=== PATIENT | male | born 1950 | race Caucasian/White ===

== ENCOUNTER 2019-03-13 10:41 | Inpatient (IN) ==
[2019-03-13] MEDS ORDERED: SODIUM CHLORIDE 0.9% 500 ML IV SCH (10:45)
[2019-03-13] MEDS ORDERED: fentaNYL citrate 100 MCG/2 ML VIAL IV STA (10:52)
[2019-03-13] MEDS ORDERED: Heparin IV Low Dose *NO* Bolus IV ONE (10:52)
--- NOTE | 2019-03-13 11:01 | XRay Report ---
XR chest 1V portable CLINICAL HISTORY: Atypical chest pain COMPARISON STUDY: No previous studies for comparison. FINDINGS: The heart is borderline enlarged. There is no failure. There is no focal pulmonary consolid ation. There are no pleural effusions. Apparent slight interstitial thickening, likely relates to ravi hnical factors given the patient's body habitus.[ IMPRESSION: No active disease in the chest. Electronically signed by: Noe Lanier M.D. 03/13/2019 10:59 AM
[2019-03-13 11:05] LABS: Basophils # (auto) 0.01 K/uL (0-0.2); Basophils % (auto) 0.1 %; Eosinophils # (auto) 0.07 K/uL (0-0.5); Eosinophils % (auto) 0.8 %; Hematocrit (blood only) 42.1 % (42-52); Hemoglobin 14.8 g/dL (14.0-18.0); Immature Granulocytes # (auto) 0.01 K/uL (0.00-0.02); Immature Granulocytes % (auto) 0.1 %; Lymphocytes # (auto) 3.18 K/uL (1.2-3.4); Lymphocytes % (auto) 34.2 %; Mean Corpuscular Hgb Conc 35.2 g/dL (32-36); Mean Platelet Volume 9.7 fL (7.4-10.4); Monocytes # (auto) 0.56 K/uL (0.11-0.59); Neutrophils # (auto) 5.47 K/uL (1.4-6.5); Neutrophils % (auto) 58.8 %; Platelet Count 338 K/uL (130-400); RDW Coefficient of Variation 13.3 % (11.5-14.5); RDW Standard Deviation 43.1 fL (36.4-46.3); Red Blood Count 4.68 M/uL (4.7-6.1)
[2019-03-13] MEDS ORDERED: TICAGRELOR 90 MG TAB PO ONE (11:08)
[2019-03-13] MEDS ORDERED: NITROGLYCERIN SL 0.4 MG/TAB TAB SL PRN (11:08)
[2019-03-13] MEDS ORDERED: HEPARIN (PORCINE) 1000 UNIT/ML 10 ML (CATH LAB USE ONLY) ONE (11:09)
[2019-03-13] MEDS ORDERED: NiCARDipine HCL INJ 2.5 MG/ML 10 ML AMP ONE (11:09)
[2019-03-13] MEDS ORDERED: MIDAZOLAM HCL 1 MG/ML 2ML VIAL ONE (11:09)
[2019-03-13] MEDS ORDERED: fentaNYL citrate 100 MCG/2 ML VIAL ONE (11:09)
[2019-03-13] MEDS ORDERED: NITROGLYCERIN/D5W 100MCG/ML 20ML SYR ONE (11:09)
[2019-03-13 11:10] LABS: iSTAT Creatinine 1.1 mg/dl (0.6-1.3); iSTAT Hemoglobin 14.3 g/dl (14.0-18.0); iSTAT Ionized Calcium 1.1 mmol/l (1.12-1.32); iSTAT Potassium 3.9 mEq/L (3.3-5.0)
[2019-03-13] MEDS ORDERED: Heparin Adult LOW DOSE Wt-Based Dextrose 5% 25,000 units/500 mL IV SCH (11:15)
[2019-03-13 11:26] LABS: Alanine Aminotransferase 21 U/L (12-78); Aspartate Aminotransferase 15 U/L (15-37); Blood Urea Nitrogen 22 mg/dl (7-18); Calcium 9.2 mg/dl (8.5-10.1); Carbon Dioxide 26 mmol/L (21-32); Chloride 108 mmol/L (98-107); Creatinine Clr Calc Pharmacy 69.9 ml/min; Est GFR (African American) 65.7; Est GFR (Non-African American) 56.7; Glucose 146 mg/dl (70-99); Potassium 3.9 mmol/L (3.5-5.1); Sodium 140 mmol/L (136-145)
[2019-03-13 11:31] LABS: Albumin Globulin Ratio 1.3 (0.9-2); Alkaline Phosphatase 66 U/L (45-117); Bilirubin,Total 0.8 mg/dl (0.2-1); Globulin 3.2 gm/dl (2.5-4.0); Phosphorus 2.4 mg/dl (2.5-4.9); Total Protein 7.2 gm/dl (6.4-8.2); Troponin I < 0.015 ng/ml (0-0.045)
[2019-03-13 11:34] LABS: Partial Thromboplastin Ratio 0.9; Partial Thromboplastin Time 24.2 Seconds (21.0-31.0); Prothrombin Time 10.5 Seconds (9.0-12.0)
--- NOTE | 2019-03-13 12:50 | Post Anesthesia Assessment ---
Date of Service March 13, 2019 Post Sedation Assessment Vital Signs Pulse Resp BP Pulse Ox 03/13/19 11:52 65 21 120/74 99 03/13/19 11:45 65 21 120/74 99 03/13/19 11:31 63 17 122/93 99 03/13/19 11:15 61 18 122/93 99 03/13/19 11:00 58 L 18 139/96 99 03/13/19 10:42 98 03/13/19 10:23 58 L 20 133/91 98 Recovery Score Activity: Moves 4 extremities Respiration: Deep Breath/Cough Circulation: +/-20% PreAnes Value Consciousness: Fully Awake Oxygen Saturation: O2 needed for >90% Discharge Sedation Level of Care: Fast Track Phase II Post Sedation Plan On clinical assessment, the patient appears to have tolerated the sedation without complications. Patient is recovering as anticipated. Patient will continue to be monitored by nursing and may be discharged when sedation discharge criteria are met per below protocol. Upon Completions of procedure and additional 15 minutes continue every 5 minute vital signs and the P.A.R. score; then discharge to a Phase I or Fast Track to Phase II per the following guidelines: * Discharge Patient to appropriate Phase II area if PAR is 8 or greater or return to pre- procedure baseline. The post - procedure orders will be as directed. * If PAR score is less than 8 or not return to pre-procedure baseline then patient will follow Phase I monitoring till PAR is reached for Phase II. The Phase I may be done in procedure room or may call to secure a Phase I area. * If naloxone or flumazenil are used for reversal, hold in Phase I for continued monitoring from when last reversal dose was given for a minimum of 60 minutes or longer pending the nurse and/or physician discretion of patient condition before discharge to Phase II. Please call the Sedation Physician to re-evaluate and complete post-note for discharge to Phase II area. Do NOT discharge from procedure sedation or Phase 1 until post- sedation evaluation note is complete by procedure /sedation MD Sedation Discharge Instructions to be given to the patient at discharge to home.
--- NOTE | 2019-03-13 12:50 | Pre Anesthesia Assessment ---
Date of Service March 13, 2019 Pre Sedation Assessment Vital Signs Pulse Resp BP Pulse Ox 03/13/19 11:52 65 21 120/74 99 03/13/19 11:45 65 21 120/74 99 03/13/19 11:31 63 17 122/93 99 03/13/19 11:15 61 18 122/93 99 03/13/19 11:00 58 L 18 139/96 99 03/13/19 10:42 98 03/13/19 10:23 58 L 20 133/91 98 Cardiovascular RRR, no murmur, no edema Respiratory normal respiratory effort, lungs clear to auscultation Pre-Sedation Airway Assessment Smoking Status: Never smoker Hx Sleep Apnea: No Hx Difficult Intubation: No Short, Thick Neck: No Thyromental Distance: > or= 3.5 Finger Breadths Oral Cavity: + WNL Mallampati Class: III Procedure Planning Contraindications for Sedation: none Current Medications Reviewed: Yes Notes The planned sedation has been discussed with the patient. Informed Consent was obtained. I have identified the patient, determined the appropriateness of sedation and have assessed the patient immediately prior to the procedure. All medicine(s) and interventions are by my order.
[2019-03-13] MEDS ORDERED: ACETAMINOPHEN 325 MG TAB PO PRN (12:53)
--- NOTE | 2019-03-13 13:09 | Cardiology Consultation ---
Date of Consultation March 13, 2019 Assessment & Plan (1) ACS (acute coronary syndrome): Presentation consistent with acute TN and recommend proceeding with emergent cardiac catheterization and likely primary PCI. No apparent contraindications to procedure. Discussed risks, benefits, alternatives of procedure with patient and they are willing to proceed. Given IV heparin and ticagrelor 180 mg in the ED. Further recommendations pending findings on coronary angiography. History of Present Illness Attending Physician: Eliazar Vincent MD History of Present Illness Mr. Valencia is a 68-year-old man here with acute chest pain and ECG concerning for acute TN. Patient seen emergently in the ED after contacted by ED staff. Past cardiac history remarkable for prior NSTEMI more than a year ago reportedly with a 99% blockage in his LAD treated with a single drug-eluting stent. Per family had severe LV dysfunction post procedure and had to wear life vest for period of time. Brilinta stopped at 1 year. Has been taking aspirin regularly. ASCVD risk factors include [id number] diabetes. Other medical issues include colonic polyps, arthritis. 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 Describes tender to 10 crushing chest pain pain with associated nausea, diaphoresis. Pain much more severe than previously had. Given nitroglycerin, fentanyl in ED but persistent 8 or 9 out of 10 chest pain. Hemodynamically stable. EKG showed subtle anterior ST elevations and inferior ST depressions. Allergies Allergy/AdvReac Type Severity Reaction Status Date / Time No Known Allergies Allergy Unverified 03/13/19 11:29 Home Medications Home Medications Medication Instructions Recorded Confirmed Type atorvastatin 40 mg PO PM 03/13/19 03/13/19 History meloxicam 15 mg PO DAILY 03/13/19 03/13/19 History metformin 1,000 mg PO BID 03/13/19 03/13/19 History metoprolol succinate 25 mg PO DAILY 03/13/19 03/13/19 History Patient History Medical History CAD (coronary artery disease) (Chronic) Surgical History History of cardiac catheterization (Chronic) Social History Feels Safe at Home: Yes Smoking Status: Never smoker Review of Systems Review of Systems: All systems reviewed & are unremarkable except as noted in HPI & below Physical Exam Physical Exam: General: Uncomfortable Eyes: Sclerae anicteric, extraocular movements intact Lungs: Clear to auscultation bilaterally, no rhonchi or wheezes Cardiac: Regular rate and rhythm, no murmurs, rubs or gallops. Vascular: 2+ radial, DP and PT pulses. No varicosities. Abdomen: Soft, nontender, nondistended, positive bowel sounds. Extremities: Well perfused, no peripheral edema Skin: No rashes or lesions. Neuro: Nonfocal Psych: Alert orient x3, normal affect and mood Results & Data Vital Signs (Past 12 Hours) Vital Signs Pulse Resp BP Pulse Ox 03/13/19 11:52 65 21 120/74 99 03/13/19 11:45 65 21 120/74 99 03/13/19 11:31 63 17 122/93 99 03/13/19 11:15 61 18 122/93 99 03/13/19 11:00 58 L 18 139/96 99 03/13/19 10:42 98 03/13/19 10:23 58 L 20 133/91 98
--- NOTE | 2019-03-13 13:14 | Cardiac Catheterization ---
Cardiac Cath Procedure: Brief Procedure Date March 13, 2019 Pre-Procedure Diagnosis Pre-Procedure Diagnosis: Acute Coronary Syndrome AUC Score AUC Score: 9 Post-Procedure Diagnosis Post-Procedure Diagnosis: Severe CAD, Successful PCI and Normal Intracardiac Pressures Procedure(s) Performed Procedure(s) Performed: Coronary Angiography, Left Heart Cath, Drug Eluting Stent and IVUS Podiatric Aide Eliazar Vincent MD Washing Machine Installer(s) Carolyn Estimated Blood Loss Estimated Blood Loss: 10 Medication(s) Medication(s): Fentanyl, Heparin, Lidocaine 1%, Nicardipine, Nitroglycerin and Versed Medication(s): Ticagrelor Preliminary Findings Successful PCI of occluded proximal LAD with single LUZ (3.0 x 15 Jose R LUZ, overlapping proximal aspect or prior stent). Recommendations Recommendations: PCI without planned CABG Specimens Specimens: None Fluids (cc crystalloids) Fluids (cc crystalloids): 100 Drains Drains: none Anesthesia moderate Procedural Complication(s) None Disposition PCU
[2019-03-13] MEDS: SODIUM CHLORIDE 0.9% 1000ML 1,000 ML IV SCH ×2 (13:29→22:37)
[2019-03-13] MEDS ORDERED: GLUCAGON FOR INJ 1 MG VIAL SQ PRN (14:03)
[2019-03-13] MEDS ORDERED: GLUCOSE 10 TABS/TUBE PO PRN (14:03)
[2019-03-13] MEDS ORDERED: CARBOHYDRATES FOR HYPOGLYCEMIA PO PRN (14:03)
[2019-03-13] MEDS ORDERED: GLUCOSE 40% GEL 15 GM TUBE PO PRN (14:03)
[2019-03-13] MEDS ORDERED: DEXTROSE 50% 50 ML SYRINGE IV PRN (14:03)
--- NOTE | 2019-03-13 14:10 | Consultation ---
Date of Consultation March 13, 2019 Assessment & Plan (1) ACS (acute coronary syndrome): (2) CAD (coronary artery disease): Pt with history LUZ to LAD in 2017. 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 Associated with nausea, vomiting, and diaphoresis and some left arm tingling. He was found to have negative troponin EKG: ST elevation anterior leads, ST depression inferior leads. CXR: no acute changes. In ER pt received nitro, Brilinta, Heparin IV, Fentanyl. Pt was taken to tutorial laboratory supervisor. Had Successful PCI of occluded proximal LAD with single LZU, overlapping proximal aspect or prior stent. -Post procedure pt reports no further CP, diaphoresis, nausea or vomiting. Denies SOB. -trend troponin -pending echo -Cardiology on board and recommends increasing atorvastatin to 80mg daily, Brilinta BID probable indefinitely, aspirin 81mg daily, lisinopril 2.5mg daily (3) Diabetes mellitus, type II: -A1c in am -Hold metformin while in hospital -Novolog sliding scale per protocol (4) Renal insufficiency: BUN: 22, Cr: 1.28, GFR: 56 Unsure of pt's baseline -monitor renal functions -avoid nephrotoxic agents when possible (5) Tobacco use: Tobacco cessation encouraged Pt denies nicotine patch DVT Prophylaxis - Full Code as per discussion with pt Follows with Dr Adis Perez in [place] for routine care Pt was seen with Dr Krause. See addendum Pt will be followed by Dr Concepcion starting 03/14/19. Thank you for this consultation. We will follow the patient with you during their hospital stay. You can reach a member of the [facility] Hospitalist Team 28/05 via pager @ [phone]. Supervising Physician Co-Signing Physician Notes I have seen and examined the patient and have discussed the case with the provider above. I agree with the assessment and plan as stated with the following exceptions. On my interview, he had some substernal pain for the last two hours. This pain was not present when he came out of the tutorial laboratory supervisor. He tried some food but felt weak in his stomach. Vitals were stable and he was in no acute distress. No JVD present, S1/2 heard with normal rate and rhythm, no edema present and extremities were warm and well-perfused. Lungs clear to auscultation and he was mentating normally. He was given a GI cocktail which was unsuccessful in controlling pain, and morphine 2mg IV improved it to a 1/10. He states the pain is the same as what he felt earlier today. Trop is 198 and will cont to trend with next lab at 0100. Will cont to trend until peak per Cards recs. Cont with morphine PRN pain. Discussed with forklift driver to follow peripherally overnight. EKGs show improvement and no further ST elevation or depressions. Dr. Vincent aware of current plan. DO Jimi Active issues: STEMI s/p PCI, possible BRISEYDA, tobacco use, DMII. History of Present Illness Reason for Consultation: Post cardiac cath medical management Attending Physician: Eliazar Vincent MD History of Present Illness Pt is 68 y/o M with PMH HTN, CAD s/p LUZ to LAD in 2017, DM II, colon polyps seen s/p cardiac cath today by Dr Vincent. 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 Associated with nausea, vomiting, and diaphoresis and some left arm tingling. He states that past couple of days having some aching to his left/posterior neck which has resolved after stent placement today. In ER vitals stable. WBC: 9.3, Hgb: 14.8, normal co-ags, magnesium: 2.0. BUN: 22, Cr: 1.28, GFR: 56, troponin negative. EKG: ST elevation anterior leads, ST depression inferior leads. CXR: no acute changes. In ER pt received nitro, Brilinta, Heparin IV, Fentanyl. Pt reports feels well after procedure today. No further CP. Denies SOB, nausea, no further vomiting or diaphoresis or left arm discomfort/tingling. Follows with Dr Smith cardiology at [facility]. Pt states was on Brilinta for 1 year after stent placement. Denies fever/chills, diarrhea, constipation, INTERIANO, dizziness, syncope, vision changes, orthopnea, palpitations, cough, sore throat, choking, otalgia, rhinorrhea, abdominal pain, weakness, extremity weakness, extremity edema, rashes, urinary symptoms. Allergies Allergy/AdvReac Type Severity Reaction Status Date / Time No Known Allergies Allergy Unverified 03/13/19 11:29 Home Medications Home Medications Medication Instructions Recorded Confirmed Type atorvastatin 40 mg PO PM 03/13/19 03/13/19 History meloxicam 15 mg PO DAILY 03/13/19 03/13/19 History metformin 1,000 mg PO BID 03/13/19 03/13/19 History metoprolol succinate 25 mg PO DAILY 03/13/19 03/13/19 History Patient History Medical History Tobacco use (Chronic) Colon polyps (Chronic) Diabetes mellitus, type II (Chronic) CAD (coronary artery disease) (Chronic) Surgical History History of cataract surgery (Chronic) History of colonoscopy (Chronic) History of cardiac catheterization (Chronic) Family History Other Hypertension Social History Preferred Language: Arabic Communication Ability: Effective Handicapped Teacher Required: Yes Beliefs That Will Affect Care: None Current Living Situation: Spouse Other Information That Helps Us Care for You: No Feels Safe at Home: Yes Safety Concerns: Feels Safe At This Time Smoking Status: Never smoker Tobacco Type: smokeless tobacco Do You Dip or Chew Tobacco: Yes Second Hand Exposure: No Tobacco Cessation Education Requested by Patient: No Hx Alcohol Use: No Hx Substance Use: No Review of Systems Review of Systems: All systems reviewed & are unremarkable except as noted in HPI & below Physical Exam Physical Exam: General: no acute distress, WDWN Head: normocephalic, atraumatic Eyes: PERRL, EOM's intact, conjunctiva non-injected, anicteric ENT: normal inspection external ears, nose, mucous membranes dry, no dentition Neck: supple, trachea midline, non-tender, ROM intact Lungs: clear, no respiratory distress, no wheezing/rhonchi/rales CV: RRR, no murmur, no pretibial edema Abd: normal BS, soft, non-tender Ext: no cyanosis, no calf tenderness; right wrist with band in place without bleeding noted Neuro: A&O x 3, pt speaks with nonarticulated speech which pt's reports is pt's baseline, pt without dentition and noted changes of mouth secondary to missing dentition however no facial droop noted, symmetric eyebrow raise, smile, frown bilaterally, normal finger to nose, strength bilateral upper and lower extremities 5/5, no pronator drip, normal affect Skin: warm, dry Results & Data Vital Signs (Past 12 Hours) Vital Signs Pulse Resp BP Pulse Ox 03/13/19 11:52 65 21 120/74 99 03/13/19 11:45 65 21 120/74 99 03/13/19 11:31 63 17 122/93 99 03/13/19 11:15 61 18 122/93 99 03/13/19 11:00 58 L 18 139/96 99 03/13/19 10:42 98 03/13/19 10:23 58 L 20 133/91 98 Laboratory Results Short CBC 03/13/19 Range/Units 10:20 WBC 9.30 (4.8-10.8) K/uL Hgb 14.8 (14.0-18.0) g/dL Hct 42.1 (42-52) % Plt Count 338 (130-400) K/uL BMP 03/13/19 10:20 Sodium 140 Potassium 3.9 Chloride 108 H Carbon Dioxide 26 BUN 22 H Creatinine 1.28 Glucose 146 H Calcium 9.2 Cardiac Enzymes 03/13/19 Range/Units 10:20 Troponin I < 0.015 (0-0.045) ng/ml Liver Function 03/13/19 Range/Units 10:20 Total Bilirubin 0.8 (0.2-1) mg/dl AST 15 (15-37) U/L ALT 21 (12-78) U/L Alkaline Phosphatase 66 (45-117) U/L Albumin 4.0 (3.4-5.0) gm/dl Diagnostic Findings CXR: IMPRESSION: No active disease in the chest. ECG Rate (beats per minute): 61 Rhythm: sinus rhythm Findings: + ST depression (Inferior) and + ST elevation (Anterior) Comparison ECG Date: no prior available
--- NOTE | 2019-03-13 18:12 | Cardiac Catheterization ---
Cardiac Cath Procedure Full Procedure Date March 13, 2019 Pre-Procedure Diagnosis Pre-Procedure Diagnosis: STEMI and Acute Coronary Syndrome AUC Score AUC Score: 9 Post-Procedure Diagnosis Post-Procedure Diagnosis: Severe CAD, Successful PCI and Normal Intracardiac Pressures Procedure(s) Performed Procedure(s) Performed: Coronary Angiography, Left Heart Cath, Drug Eluting Stent and IVUS Rehabilitation Assistant Eliazar Vincent MD Transition Mgr(s) Carolyn Estimated Blood Loss Estimated Blood Loss: 10 Medication(s) Medication(s): Fentanyl, Heparin, Lidocaine 1%, Nicardipine, Nitroglycerin and Versed Medication(s): ticagrelor Summary of Findings Indication: Anterior STEMI Access: 6 Fr right radial artery Catheters: Ikari 3.5 guide, pigtail Findings: LM -moderate caliber, luminal irregularities LAD -acute 100% proximal occlusion just before prior stent Circumflex -moderate caliber, luminal irregularities, moderate caliber OM 2 without significant disease RCA -dominant, moderate caliber vessel, luminal irregularities in the mid segment and right PDA LVEDP -17 -- PCI -- Antithrombotic therapy: Heparin, Clopdigrel Procedure: Left main cannulated with Ikari 3.5 guide Engineering Administrator 50 wire passed across lesion into distal vessel Proximal LAD lesion predilated with 2.5 compliant balloon IVUS used to assess mechanism of stent failure, extent of disease pre-and IntraStent. Stent appeared largely free of restenosis and appeared mildly underexpanded. Mild disease proximal to stent with some residual thrombus. Previous stent postdilated with 3.0 NC Dilated lesion stented with 3.0 x 15 Jose R drug-eluting stent which overlapped the proximal half of initial stent Stents post-dilated with 2.25 noncompliant balloon IC vasodilators administered for spasm Post procedure DANYA 3 flow, stent well expanded with minimal residual stenosis and no apparent cardiac complications. Arterial Closure: TR band Summary: 1. Anterior STEMI/Occluded proximal LAD just proximal to prior stent 2. Minimal non-culprit vessel coronary artery disease 3. Borderline intracardiac filling pressure 4. Successful PCI of proximal LAD with single drug-eluting stent (3.0 x 15 mm [place] postdilated with 3.25 NC) overlapping proximal aspect of prior stent Recommendations: Admit to PCU for continued monitoring Loaded with ticagrelor 180 mg Continue dual-antiplatelet therapy likely indefinitely with very late stent thrombosis Trend troponins until peak, Check Echo Uptitrate beta-justa/FAREED as BP allows High-dose statin Consult cardiac Rehab Hemodynamics Rest Ao:: 118/63/90 Final Ao: 87/55/69 LV: 90/17 Recommendations Recommendations: PCI without planned CABG Specimens Specimens: None Radiation Exposure (mGy) 2457 Contrast (mls) 90 Fluids (cc crystalloids) Fluids (cc crystalloids): 100 Drains Drains: none Anesthesia moderate Procedural Complication(s) None Disposition PCU ACC Data: Customer Service Sales Consultant Cardiac Status Clinical evaluation leading to the procedure CAD Presenation: STEMI Anginal Classification: CCS IV Heart Failure: No Cardiogenic Shock within 24 Hours: No Cardiac Arrest within 24 Hours: No Imaging Studies Past 6 Months: No Stress Studies Past 6 Months: No Diagnostic Physicians Name: Eliazar Vincent MD Status: Elective Closure Device Percutaneous Entry Location: Radial Closure Device: Radial Band Recommendations: PCI without planned CABG PCI Indication: Immediate PCI for STEMI First Noted: Subsequent EKG Lesion Segment Name: proximal LAD Culprit Artery: Yes Stenosis Prior to Rx (%): 100 Chronic Total Occlusion: No IVUS: No FFR: No Pre-Procedure DANYA Flow: 0 Previously Treated Lesion: Timeframe: 1-2 years Treated with Stent: Yes In-Stent Thrombosis: Yes Stent Type: LUZ Yes Lesion Complexity: Non-High/Non-C Lesion Length (mm): 12 Thrombus Present: Yes Bifurcation Lesion: No Guidewire Across Lesion: Stenosis Post-Procedure (%): 0 Post-Procedure DANYA Flow: 3 Devices(s) Deployed: Yes Yes Intraprocedure Events Significant Disection: No Perforation: No
[2019-03-13] MEDS: INSULIN ASPART 100 UNITS/ML 3 ML PEN SC SCH ×2 (18:13→20:52)
--- NOTE | 2019-03-13 18:16 | Emergency Department Note ---
Entered by Americo Concepcion acting as a scribe for Sean Schreiber MD History of Present Illness General Chief complaint: Chest Pain Stated complaint: chest pain Time Seen by Provider: 03/13/19 10:42 Source: patient Limitations: no limitations History of Present Illness Onset (ago): hour(s) 2 Location: chest Radiation: neck Pain Consistency: + constant Quality: + sharp Associated symptoms: + diaphoresis and + nausea/vomiting The patient is a 68 white male w/ PMHx CAD who presents to the ED w/ CC of constant chest pain beginning 2 hours ago. The patient states he was walking when he suddenly got sharp chest pain. He states he vomited and was sweaty. He notes he was working at the time. He states the pain radiates to his neck. He notes he had a heart attack before. He denies any recent trauma. He states he takes aspirin and uses snuff. Home Medications Home Medications Medication Instructions Recorded Confirmed Type atorvastatin 40 mg PO PM 03/13/19 03/13/19 History meloxicam 15 mg PO DAILY 03/13/19 03/13/19 History metformin 1,000 mg PO BID 03/13/19 03/13/19 History metoprolol succinate 25 mg PO DAILY 03/13/19 03/13/19 History Allergies Allergy/AdvReac Type Severity Reaction Status Date / Time No Known Allergies Allergy Unverified 03/13/19 11:29 Past Med/Surg History Medical History Tobacco use (Chronic) Colon polyps (Chronic) Diabetes mellitus, type II (Chronic) CAD (coronary artery disease) (Chronic) Surgical History History of cataract surgery (Chronic) History of colonoscopy (Chronic) History of cardiac catheterization (Chronic) Family History Other Hypertension Social History Preferred Language: Turkish Communication Ability: Effective Orchard Worker Required: Yes Beliefs That Will Affect Care: None Current Living Situation: Spouse Other Information That Helps Us Care for You: No Feels Safe at Home: Yes Safety Concerns: Feels Safe At This Time Smoking Status: Never smoker Tobacco Type: smokeless tobacco Do You Dip or Chew Tobacco: Yes Second Hand Exposure: No Tobacco Cessation Education Requested by Patient: No Hx Alcohol Use: No Hx Substance Use: No Review of Systems See HPI for pertinent positives & negatives. and A total of 10 systems reviewed and were otherwise negative Physical Exam Vital Signs Vital Signs - 24 hr 03/13/19 13:30 03/13/19 14:00 03/13/19 14:15 Temperature Temperature Source Pulse Rate [Apical] 71 72 69 Pulse Rate [Finger] Pulse Rate [Right Radial] Pulse Rhythm [Apical] Regular Pulse Rhythm [Right Radial] Pulse Strength [Apical] Normal Pulse Strength [Right Radial] Respiratory Rate 23 21 25 H Respiratory Effort / Characteristics Non-Labored Non-Labored Non-Labored Respiratory Depth Normal Normal Normal Respiratory Pattern Blood Pressure [Left Arm] 107/71 115/72 92/66 L Blood Pressure Mean [Left Arm] 83 86 74 Blood Pressure Position [Left Arm] Lying Lying Lying Pulse Oximetry 93 94 98 Oxygen Delivery Method Room Air Room Air Room Air 03/13/19 14:20 03/13/19 14:30 03/13/19 14:45 Temperature Temperature Source Pulse Rate [Apical] Pulse Rate [Finger] Pulse Rate [Right Radial] 67 68 81 Pulse Rhythm [Apical] Pulse Rhythm [Right Radial] Regular Regular Regular Pulse Strength [Apical] Pulse Strength [Right Radial] Normal Normal Respiratory Rate 16 22 20 Respiratory Effort / Characteristics Non-Labored Spontaneous Respiratory Depth Normal Normal Normal Respiratory Pattern Regular Blood Pressure [Left Arm] 92/66 L 103/67 113/77 Blood Pressure Mean [Left Arm] 74 79 89 Blood Pressure Position [Left Arm] Lying Pulse Oximetry 98 98 94 Oxygen Delivery Method Room Air 03/13/19 15:00 03/13/19 15:15 03/13/19 15:30 Temperature Temperature Source Pulse Rate [Apical] 72 Pulse Rate [Finger] Pulse Rate [Right Radial] 69 73 Pulse Rhythm [Apical] Regular Pulse Rhythm [Right Radial] Regular Regular Pulse Strength [Apical] Normal Pulse Strength [Right Radial] Respiratory Rate 22 18 18 Respiratory Effort / Characteristics Non-Labored Respiratory Depth Normal Normal Normal Respiratory Pattern Blood Pressure [Left Arm] 120/64 117/77 103/57 L Blood Pressure Mean [Left Arm] 82 90 72 Blood Pressure Position [Left Arm] Lying Lying Lying Pulse Oximetry 95 97 95 Oxygen Delivery Method Room Air Room Air Room Air 03/13/19 15:38 03/13/19 15:45 03/13/19 16:00 Temperature 36.9 C Temperature Source Oral Pulse Rate [Apical] 71 67 65 Pulse Rate [Finger] Pulse Rate [Right Radial] Pulse Rhythm [Apical] Pulse Rhythm [Right Radial] Pulse Strength [Apical] Pulse Strength [Right Radial] Respiratory Rate 20 18 20 Respiratory Effort / Characteristics Respiratory Depth Respiratory Pattern Blood Pressure [Left Arm] 103/57 L 120/75 118/72 Blood Pressure Mean [Left Arm] 72 90 87 Blood Pressure Position [Left Arm] Lying Lying Lying Pulse Oximetry 97 97 98 Oxygen Delivery Method Room Air Room Air Room Air 03/13/19 16:15 03/13/19 16:30 03/13/19 19:50 Temperature 36.8 C Temperature Source Oral Pulse Rate [Apical] 67 67 59 L Pulse Rate [Finger] Pulse Rate [Right Radial] Pulse Rhythm [Apical] Pulse Rhythm [Right Radial] Pulse Strength [Apical] Pulse Strength [Right Radial] Respiratory Rate 21 15 20 Respiratory Effort / Characteristics Respiratory Depth Respiratory Pattern Blood Pressure [Left Arm] 106/83 109/83 118/66 Blood Pressure Mean [Left Arm] 90 91 83 Blood Pressure Position [Left Arm] Sitting Sitting Lying Pulse Oximetry 97 96 98 Oxygen Delivery Method Room Air Room Air Room Air 03/13/19 23:35 03/14/19 04:00 03/14/19 11:34 Temperature 37.3 C 37.4 C 37.8 C H Temperature Source Oral Oral Oral Pulse Rate [Apical] 65 Pulse Rate [Finger] 65 62 Pulse Rate [Right Radial] Pulse Rhythm [Apical] Regular Pulse Rhythm [Right Radial] Pulse Strength [Apical] Normal Pulse Strength [Right Radial] Respiratory Rate 16 16 19 Respiratory Effort / Characteristics Non-Labored Spontaneous Respiratory Depth Normal Respiratory Pattern Blood Pressure [Left Arm] 122/71 94/62 L Blood Pressure Mean [Left Arm] 88 72 Blood Pressure Position [Left Arm] Lying Sitting Pulse Oximetry 95 93 95 Oxygen Delivery Method Room Air Room Air Room Air GENERAL: Mildly uncomfortable in appearance. Diaphoretic. EYE EXAM: Normal conjunctiva. PERRL, no anisocoria and EOM's grossly intact w/o pain. OROPHARYNX: Moist mucous membranes. Normal dentition. NECK: Supple, no nuchal rigidity, no adenopathy, non-tender. no signs of meningismus. LUNGS: Clear to auscultation. Normal chest wall mechanics. HEART: NSR, no MRG. ABDOMEN: Abdomen soft, non-tender, normo-active bowel sounds, no masses, no rebound or guarding. BACK: No CVA TTP. SKIN: No rashes and no bruising. UPPER EXTREMITIES: Upper extremities are grossly normal. LOWER EXTREMITIES: No pitting edema. No calf pain. Negative Giselle's sign. NEURO EXAM: Cranial nerves II-XII grossly intact, normal speech. Moves all 4 extremities on command w/o issue. Course 1043: The patient was evaluated in room B3, and a complete history and physical examination were performed. 1107: I spoke with Dr. Vincent - Cardiology. He would like to take the patient to the civil laboratory technician. He recommends ordering Brilinta for the patient. 1120: I spoke with Hanh Aviles PA-C. She states Dr. Krause will evaluate the patient. 1132: I reevaluated the patient. He states his pain has improved. Administered Medications Aspirin (Ecotrin Ectab) 81 mg PO QAM [facility] Stop: 04/13/19 08:59 Last Admin: 03/14/19 08:14 Dose: 81 mg Documented by: [id number] Atorvastatin Calcium (Lipitor) 80 mg PO QAM [facility] Stop: 04/13/19 08:59 Last Admin: 03/14/19 08:14 Dose: 80 mg Documented by: [id number] Sodium Chloride (Nss 1000ml) 1,000 mls @ 100 mls/hr IV .Q10H MANI Stop: 04/12/19 13:29 Last Admin: 03/13/19 22:37 Dose: 100 mls/hr Documented by: [id number] Infusion: 03/13/19 22:37 Dose: 0 mls/hr Documented by: [id number] Admin: 03/13/19 13:29 Dose: 100 mls/hr Documented by: [id number] Insulin Aspart (Novolog Flexpen) 0 units SC ACHS MANI Stop: 04/12/19 16:29 Last Admin: 03/14/19 08:14 Dose: 5 units Documented by: [id number] Cosigned by: [id number] Admin: 03/13/19 20:52 Dose: Not Given Documented by: [id number] Cosigned by: [id number] Admin: 03/13/19 18:13 Dose: 2 units Documented by: [id number] Cosigned by: [id number] Lisinopril (Zestril) 2.5 mg PO QAM [facility] Stop: 04/13/19 08:59 Last Admin: 03/14/19 08:13 Dose: 2.5 mg Documented by: [id number] Metoprolol Tartrate (Lopressor) 25 mg PO BID [facility] Stop: 04/12/19 20:59 Last Admin: 03/14/19 08:13 Dose: 25 mg Documented by: [id number] Admin: 03/13/19 20:52 Dose: 25 mg Documented by: [id number] Morphine Sulfate (Morphine Sulfate) 2 mg IV Q1H PRN PRN Reason: chest pain Stop: 03/27/19 17:59 Last Admin: 03/14/19 01:22 Dose: 2 mg Documented by: [id number] Admin: 03/13/19 20:53 Dose: 2 mg Documented by: [id number] Nitroglycerin (Nitrostat) 0.4 mg SL PRN PRN PRN Reason: Chest Pain Stop: 04/12/19 11:07 Last Admin: 03/13/19 11:27 Dose: 0.4 mg Documented by: [id number] Ondansetron HCl (Zofran) 4 mg IV Q6H PRN PRN Reason: Nausea And Vomiting Stop: 04/12/19 12:52 Last Admin: 03/14/19 03:25 Dose: 4 mg Documented by: [id number] Ticagrelor (Brilinta) 90 mg PO BID [facility] Stop: 04/12/19 21:59 Last Admin: 03/14/19 08:13 Dose: 90 mg Documented by: [id number] Admin: 03/13/19 22:38 Dose: 90 mg Documented by: [id number] Discontinued Medications Al Hydrox/Mg Hydrox/Simethicone 18 ml/ Lidocaine HCl 6 ml/ BARCODE IDENTIFIER 1 ea 0 ml PO ONE ONE Stop: 03/13/19 18:31 Last Admin: 03/13/19 19:08 Dose: 18 ml Documented by: [id number] Fentanyl Citrate (Fentanyl Citrate) 75 mcg IV NOW STA Stop: 03/13/19 10:53 Last Admin: 03/13/19 11:01 Dose: 75 mcg Documented by: [id number] Fentanyl Citrate (Fentanyl Citrate) Confirm Administered Dose 100 mcg .ROUTE .STK-MED ONE Stop: 03/13/19 11:10 Last Admin: 03/13/19 13:28 Dose: Not Given Documented by: [id number] Heparin Sodium (Porcine) (Heparin Iv Bolus ([employer] Use Only)) Confirm Administered Dose 10,000 units .ROUTE .STK-MED ONE Stop: 03/13/19 11:10 Last Admin: 03/13/19 13:28 Dose: Not Given Documented by: [id number] Heparin Sodium/Dextrose () 1 ea IV ONE ONE; Protocol Stop: 03/13/19 10:53 Last Admin: 03/13/19 13:28 Dose: Not Given Documented by: [id number] Heparin Sodium/Sodium Chloride (Heparin/Nss 1000 Unit/500ml Flush Bag) Confirm Administered Dose 3,000 units IV .STK-MED ONE Stop: 03/13/19 11:10 Last Admin: 03/13/19 13:28 Dose: Not Given Documented by: [id number] Sodium Chloride (Nss) 500 mls @ 999 mls/hr IV .Q31M MANI Stop: 03/13/19 11:15 Last Infusion: 03/13/19 11:33 Dose: 0 mls/hr Documented by: [id number] Admin: 03/13/19 10:59 Dose: 999 mls/hr Documented by: [id number] Heparin Sodium/Dextrose (Heparin Sodium/Dextrose) 25,000 units in 500 mls @ 20 mls/hr IV .Q24H MANI; Protocol Stop: 04/12/19 11:14 Last Titration: 03/13/19 21:50 Dose: 0 units/hr, 0 mls/hr Documented by: [id number] Cosigned by: [id number] Admin: 03/13/19 11:24 Dose: 1,000 units/hr, 20 mls/hr Documented by: [id number] Cosigned by: [id number] Midazolam HCl (Versed) Confirm Administered Dose 2 mg .ROUTE .STK-MED ONE Stop: 03/13/19 11:10 Last Admin: 03/13/19 13:29 Dose: Not Given Documented by: [id number] Nicardipine HCl (Cardene) Confirm Administered Dose 25 mg .ROUTE .STK-MED ONE Stop: 03/13/19 11:10 Last Admin: 03/13/19 13:28 Dose: Not Given Documented by: [id number] Nitroglycerin/Dextrose (Nitroglycerin/D5w 100 Mcg/Ml 20ml Syringe) Confirm Administered Dose 2,000 mcg .ROUTE .STK-MED ONE Stop: 03/13/19 11:10 Last Admin: 03/13/19 13:29 Dose: Not Given Documented by: [id number] Ticagrelor (Brilinta) 180 mg PO ONE ONE Stop: 03/13/19 11:09 Last Admin: 03/13/19 11:26 Dose: 180 mg Documented by: [id number] Medical Decision Making Medical Records Attestation: I reviewed the patient's medical records. Home Medications Current Medication List: was personally reviewed by [id number] Laboratory Data Attestation: I reviewed the patient's lab results. Result diagrams: 03/14/19 05:43 03/13/19 10:20 Lab Results 03/13/19 03/13/19 03/13/19 Range/Units 10:20 10:20 10:56 WBC 9.30 (4.8-10.8) K/uL RBC 4.68 L (4.7-6.1) M/uL Hgb 14.8 (14.0-18.0) g/dL POC Hgb 14.3 (14.0-18.0) g/dl Hct 42.1 (42-52) % POC Hct 42 (42-52) % MCV 90.0 (80-100) fL MCH 31.6 (25-34) pg MCHC 35.2 (32-36) g/dL RDW Std Deviation 43.1 (36.4-46.3) fL RDW Coeff of Hiwot 13.3 (11.5-14.5) % Plt Count 338 (130-400) K/uL MPV 9.7 (7.4-10.4) fL Immature Gran % (Auto) 0.1 % Neut % (Auto) 58.8 % Lymph % (Auto) 34.2 % [place] % (Auto) 6.0 % Eos % (Auto) 0.8 % Baso % (Auto) 0.1 % Immature Gran # (Auto) 0.01 (0.00-0.02) K/uL Neut # (Auto) 5.47 (1.4-6.5) K/uL Lymph # (Auto) 3.18 (1.2-3.4) K/uL [place] # (Auto) 0.56 (0.11-0.59) K/uL Eos # (Auto) 0.07 (0-0.5) K/uL Baso # (Auto) 0.01 (0-0.2) K/uL PT (9.0-12.0) Seconds INR (0.9-1.1) APTT (21.0-31.0) Seconds PTT Ratio Activ Coag Time Kaolin (94-140) SECONDS POC Sodium 144 (135-144) mEq/L Sodium 140 (136-145) mmol/L POC Potassium 3.9 (3.3-5.0) mEq/L Potassium 3.9 (3.5-5.1) mmol/L POC Chloride 105 (101-112) mEq/L Chloride 108 H (98-107) mmol/L Carbon Dioxide 26 (21-32) mmol/L POC Total CO2 24 (24-31) mEq/l Anion Gap 6.0 (3-11) POC Anion Gap 20.0 (16-25) mmol/L POC BUN 22 H (7-18) mg/dl BUN 22 H (7-18) mg/dl Creatinine 1.28 (0.6-1.4) mg/dl POC Creatinine 1.1 (0.6-1.3) mg/dl Est Cr Clr Drug Dosing 69.9 ml/min Est GFR ( Amer) 65.7 Est GFR (Non-Af Amer) 56.7 BUN/Creatinine Ratio 17.0 (10-20) Glucose 146 H (70-99) mg/dl POC Glucose (70-99) POC Glucose (other) 153 H (70-99) mg/dl Estimat Average Glucose mg/dl Hemoglobin A1c (4.5-5.6) % Calcium 9.2 (8.5-10.1) mg/dl POC Ioniz Calcium Christiano 1.10 L (1.12-1.32) mmol/l Phosphorus 2.4 L (2.5-4.9) mg/dl Magnesium 2.0 (1.8-2.4) mg/dl Total Bilirubin 0.8 (0.2-1) mg/dl AST 15 (15-37) U/L ALT 21 (12-78) U/L Alkaline Phosphatase 66 (45-117) U/L POC Troponin I (0-0.045) ng/ml Troponin I < 0.015 (0-0.045) ng/ml Total Protein 7.2 (6.4-8.2) gm/dl Albumin 4.0 (3.4-5.0) gm/dl Globulin 3.2 (2.5-4.0) gm/dl Albumin/Globulin Ratio 1.3 (0.9-2) Triglycerides (0-150) mg/dl Cholesterol (0-200) mg/dl LDL Cholesterol, Calc mg/dl VLDL Cholesterol, Calc mg/dl HDL Cholesterol mg/dl Cholesterol/HDL Ratio Lipase 109 (73-393) U/L Hepatitis C Ab Screen (Neg) 03/13/19 03/13/19 03/13/19 Range/Units 11:00 11:14 11:16 WBC (4.8-10.8) K/uL RBC (4.7-6.1) M/uL Hgb (14.0-18.0) g/dL POC Hgb (14.0-18.0) g/dl Hct (42-52) % POC Hct (42-52) % MCV (80-100) fL MCH (25-34) pg MCHC (32-36) g/dL RDW Std Deviation (36.4-46.3) fL RDW Coeff of Hiwot (11.5-14.5) % Plt Count (130-400) K/uL MPV (7.4-10.4) fL Immature Gran % (Auto) % Neut % (Auto) % Lymph % (Auto) % [place] % (Auto) % Eos % (Auto) % Baso % (Auto) % Immature Gran # (Auto) (0.00-0.02) K/uL Neut # (Auto) (1.4-6.5) K/uL Lymph # (Auto) (1.2-3.4) K/uL [place] # (Auto) (0.11-0.59) K/uL Eos # (Auto) (0-0.5) K/uL Baso # (Auto) (0-0.2) K/uL PT 10.5 (9.0-12.0) Seconds INR 1.0 (0.9-1.1) APTT 24.2 (21.0-31.0) Seconds PTT Ratio 0.9 Activ Coag Time Kaolin (94-140) SECONDS POC Sodium (135-144) mEq/L Sodium (136-145) mmol/L POC Potassium (3.3-5.0) mEq/L Potassium (3.5-5.1) mmol/L POC Chloride (101-112) mEq/L Chloride (98-107) mmol/L Carbon Dioxide (21-32) mmol/L POC Total CO2 (24-31) mEq/l Anion Gap (3-11) POC Anion Gap (16-25) mmol/L POC BUN (7-18) mg/dl BUN (7-18) mg/dl Creatinine (0.6-1.4) mg/dl POC Creatinine (0.6-1.3) mg/dl Est Cr Clr Drug Dosing ml/min Est GFR ( Amer) Est GFR (Non-Af Amer) BUN/Creatinine Ratio (10-20) Glucose (70-99) mg/dl POC Glucose (70-99) POC Glucose (other) (70-99) mg/dl Estimat Average Glucose mg/dl Hemoglobin A1c (4.5-5.6) % Calcium (8.5-10.1) mg/dl POC Ioniz Calcium Christiano (1.12-1.32) mmol/l Phosphorus (2.5-4.9) mg/dl Magnesium (1.8-2.4) mg/dl Total Bilirubin (0.2-1) mg/dl AST (15-37) U/L ALT (12-78) U/L Alkaline Phosphatase (45-117) U/L POC Troponin I < 0.03 (0-0.045) ng/ml Troponin I (0-0.045) ng/ml Total Protein (6.4-8.2) gm/dl Albumin (3.4-5.0) gm/dl Globulin (2.5-4.0) gm/dl Albumin/Globulin Ratio (0.9-2) Triglycerides (0-150) mg/dl Cholesterol (0-200) mg/dl LDL Cholesterol, Calc mg/dl VLDL Cholesterol, Calc mg/dl HDL Cholesterol mg/dl Cholesterol/HDL Ratio Lipase (73-393) U/L Hepatitis C Ab Screen Neg (Neg) 03/13/19 03/13/19 03/13/19 Range/Units 12:31 16:48 18:56 WBC (4.8-10.8) K/uL RBC (4.7-6.1) M/uL Hgb (14.0-18.0) g/dL POC Hgb (14.0-18.0) g/dl Hct (42-52) % POC Hct (42-52) % MCV (80-100) fL MCH (25-34) pg MCHC (32-36) g/dL RDW Std Deviation (36.4-46.3) fL RDW Coeff of Hiwot (11.5-14.5) % Plt Count (130-400) K/uL MPV (7.4-10.4) fL Immature Gran % (Auto) % Neut % (Auto) % Lymph % (Auto) % [place] % (Auto) % Eos % (Auto) % Baso % (Auto) % Immature Gran # (Auto) (0.00-0.02) K/uL Neut # (Auto) (1.4-6.5) K/uL Lymph # (Auto) (1.2-3.4) K/uL [place] # (Auto) (0.11-0.59) K/uL Eos # (Auto) (0-0.5) K/uL Baso # (Auto) (0-0.2) K/uL PT (9.0-12.0) Seconds INR (0.9-1.1) APTT (21.0-31.0) Seconds PTT Ratio Activ Coag Time Kaolin 219 H (94-140) SECONDS POC Sodium (135-144) mEq/L Sodium (136-145) mmol/L POC Potassium (3.3-5.0) mEq/L Potassium (3.5-5.1) mmol/L POC Chloride (101-112) mEq/L Chloride (98-107) mmol/L Carbon Dioxide (21-32) mmol/L POC Total CO2 (24-31) mEq/l Anion Gap (3-11) POC Anion Gap (16-25) mmol/L POC BUN (7-18) mg/dl BUN (7-18) mg/dl Creatinine (0.6-1.4) mg/dl POC Creatinine (0.6-1.3) mg/dl Est Cr Clr Drug Dosing ml/min Est GFR ( Amer) Est GFR (Non-Af Amer) BUN/Creatinine Ratio (10-20) Glucose (70-99) mg/dl POC Glucose 111 H (70-99) POC Glucose (other) (70-99) mg/dl Estimat Average Glucose mg/dl Hemoglobin A1c (4.5-5.6) % Calcium (8.5-10.1) mg/dl POC Ioniz Calcium Christiano (1.12-1.32) mmol/l Phosphorus (2.5-4.9) mg/dl Magnesium (1.8-2.4) mg/dl Total Bilirubin (0.2-1) mg/dl AST (15-37) U/L ALT (12-78) U/L Alkaline Phosphatase (45-117) U/L POC Troponin I (0-0.045) ng/ml Troponin I 193.000 H* (0-0.045) ng/ml Total Protein (6.4-8.2) gm/dl Albumin (3.4-5.0) gm/dl Globulin (2.5-4.0) gm/dl Albumin/Globulin Ratio (0.9-2) Triglycerides (0-150) mg/dl Cholesterol (0-200) mg/dl LDL Cholesterol, Calc mg/dl VLDL Cholesterol, Calc mg/dl HDL Cholesterol mg/dl Cholesterol/HDL Ratio Lipase (73-393) U/L Hepatitis C Ab Screen (Neg) 03/13/19 03/14/19 03/14/19 Range/Units 20:40 00:29 05:43 WBC 12.63 H (4.8-10.8) K/uL RBC 4.34 L (4.7-6.1) M/uL Hgb 13.5 L (14.0-18.0) g/dL POC Hgb (14.0-18.0) g/dl Hct 39.5 L (42-52) % POC Hct (42-52) % MCV 91.0 (80-100) fL MCH 31.1 (25-34) pg MCHC 34.2 (32-36) g/dL RDW Std Deviation 44.9 (36.4-46.3) fL RDW Coeff of Hiwot 13.6 (11.5-14.5) % Plt Count 265 (130-400) K/uL MPV 9.6 (7.4-10.4) fL Immature Gran % (Auto) 0.2 % Neut % (Auto) 76.9 % Lymph % (Auto) 14.3 % [place] % (Auto) 8.3 % Eos % (Auto) 0.2 % Baso % (Auto) 0.1 % Immature Gran # (Auto) 0.03 H (0.00-0.02) K/uL Neut # (Auto) 9.71 H (1.4-6.5) K/uL Lymph # (Auto) 1.81 (1.2-3.4) K/uL [place] # (Auto) 1.05 H (0.11-0.59) K/uL Eos # (Auto) 0.02 (0-0.5) K/uL Baso # (Auto) 0.01 (0-0.2) K/uL PT (9.0-12.0) Seconds INR (0.9-1.1) APTT (21.0-31.0) Seconds PTT Ratio Activ Coag Time Kaolin (94-140) SECONDS POC Sodium (135-144) mEq/L Sodium (136-145) mmol/L POC Potassium (3.3-5.0) mEq/L Potassium (3.5-5.1) mmol/L POC Chloride (101-112) mEq/L Chloride (98-107) mmol/L Carbon Dioxide (21-32) mmol/L POC Total CO2 (24-31) mEq/l Anion Gap (3-11) POC Anion Gap (16-25) mmol/L POC BUN (7-18) mg/dl BUN (7-18) mg/dl Creatinine (0.6-1.4) mg/dl POC Creatinine (0.6-1.3) mg/dl Est Cr Clr Drug Dosing ml/min Est GFR ( Amer) Est GFR (Non-Af Amer) BUN/Creatinine Ratio (10-20) Glucose (70-99) mg/dl POC Glucose 114 H (70-99) POC Glucose (other) (70-99) mg/dl Estimat Average Glucose mg/dl Hemoglobin A1c (4.5-5.6) % Calcium (8.5-10.1) mg/dl POC Ioniz Calcium Christiano (1.12-1.32) mmol/l Phosphorus (2.5-4.9) mg/dl Magnesium (1.8-2.4) mg/dl Total Bilirubin (0.2-1) mg/dl AST (15-37) U/L ALT (12-78) U/L Alkaline Phosphatase (45-117) U/L POC Troponin I (0-0.045) ng/ml Troponin I 181.000 H* (0-0.045) ng/ml Total Protein (6.4-8.2) gm/dl Albumin (3.4-5.0) gm/dl Globulin (2.5-4.0) gm/dl Albumin/Globulin Ratio (0.9-2) Triglycerides (0-150) mg/dl Cholesterol (0-200) mg/dl LDL Cholesterol, Calc mg/dl VLDL Cholesterol, Calc mg/dl HDL Cholesterol mg/dl Cholesterol/HDL Ratio Lipase (73-393) U/L Hepatitis C Ab Screen (Neg) 03/14/19 03/14/19 03/14/19 Range/Units 05:43 05:43 07:26 WBC (4.8-10.8) K/uL RBC (4.7-6.1) M/uL Hgb (14.0-18.0) g/dL POC Hgb (14.0-18.0) g/dl Hct (42-52) % POC Hct (42-52) % MCV (80-100) fL MCH (25-34) pg MCHC (32-36) g/dL RDW Std Deviation (36.4-46.3) fL RDW Coeff of Hiwot (11.5-14.5) % Plt Count (130-400) K/uL MPV (7.4-10.4) fL Immature Gran % (Auto) % Neut % (Auto) % Lymph % (Auto) % [place] % (Auto) % Eos % (Auto) % Baso % (Auto) % Immature Gran # (Auto) (0.00-0.02) K/uL Neut # (Auto) (1.4-6.5) K/uL Lymph # (Auto) (1.2-3.4) K/uL [place] # (Auto) (0.11-0.59) K/uL Eos # (Auto) (0-0.5) K/uL Baso # (Auto) (0-0.2) K/uL PT (9.0-12.0) Seconds INR (0.9-1.1) APTT (21.0-31.0) Seconds PTT Ratio Activ Coag Time Kaolin (94-140) SECONDS POC Sodium (135-144) mEq/L Sodium (136-145) mmol/L POC Potassium (3.3-5.0) mEq/L Potassium (3.5-5.1) mmol/L POC Chloride (101-112) mEq/L Chloride (98-107) mmol/L Carbon Dioxide (21-32) mmol/L POC Total CO2 (24-31) mEq/l Anion Gap (3-11) POC Anion Gap (16-25) mmol/L POC BUN (7-18) mg/dl BUN (7-18) mg/dl Creatinine (0.6-1.4) mg/dl POC Creatinine (0.6-1.3) mg/dl Est Cr Clr Drug Dosing ml/min Est GFR ( Amer) Est GFR (Non-Af Amer) BUN/Creatinine Ratio (10-20) Glucose (70-99) mg/dl POC Glucose 161 H (70-99) POC Glucose (other) (70-99) mg/dl Estimat Average Glucose 148 mg/dl Hemoglobin A1c 6.8 H (4.5-5.6) % Calcium (8.5-10.1) mg/dl POC Ioniz Calcium [place] (1.12-1.32) mmol/l Phosphorus (2.5-4.9) mg/dl Magnesium (1.8-2.4) mg/dl Total Bilirubin (0.2-1) mg/dl AST (15-37) U/L ALT (12-78) U/L Alkaline Phosphatase (45-117) U/L POC Troponin I (0-0.045) ng/ml Troponin I (0-0.045) ng/ml Total Protein (6.4-8.2) gm/dl Albumin (3.4-5.0) gm/dl Globulin (2.5-4.0) gm/dl Albumin/Globulin Ratio (0.9-2) Triglycerides 91 (0-150) mg/dl Cholesterol 113 (0-200) mg/dl LDL Cholesterol, Calc 56 mg/dl VLDL Cholesterol, Calc 18 mg/dl HDL Cholesterol 39 mg/dl Cholesterol/HDL Ratio 3 Lipase (73-393) U/L Hepatitis C Ab Screen (Neg) 03/14/19 Range/Units 11:20 WBC (4.8-10.8) K/uL RBC (4.7-6.1) M/uL Hgb (14.0-18.0) g/dL POC Hgb (14.0-18.0) g/dl Hct (42-52) % POC Hct (42-52) % MCV (80-100) fL MCH (25-34) pg MCHC (32-36) g/dL RDW Std Deviation (36.4-46.3) fL RDW Coeff of [place] (11.5-14.5) % Plt Count (130-400) K/uL MPV (7.4-10.4) fL Immature Gran % (Auto) % Neut % (Auto) % Lymph % (Auto) % [place] % (Auto) % Eos % (Auto) % Baso % (Auto) % Immature Gran # (Auto) (0.00-0.02) K/uL Neut # (Auto) (1.4-6.5) K/uL Lymph # (Auto) (1.2-3.4) K/uL [place] # (Auto) (0.11-0.59) K/uL Eos # (Auto) (0-0.5) K/uL Baso # (Auto) (0-0.2) K/uL PT (9.0-12.0) Seconds INR (0.9-1.1) APTT (21.0-31.0) Seconds PTT Ratio Activ Coag Time Kaolin (94-140) SECONDS POC Sodium (135-144) mEq/L Sodium (136-145) mmol/L POC Potassium (3.3-5.0) mEq/L Potassium (3.5-5.1) mmol/L POC Chloride (101-112) mEq/L Chloride (98-107) mmol/L Carbon Dioxide (21-32) mmol/L POC Total CO2 (24-31) mEq/l Anion Gap (3-11) POC Anion Gap (16-25) mmol/L POC BUN (7-18) mg/dl BUN (7-18) mg/dl Creatinine (0.6-1.4) mg/dl POC Creatinine (0.6-1.3) mg/dl Est Cr Clr Drug Dosing ml/min Est GFR ( Amer) Est GFR (Non-Af Amer) BUN/Creatinine Ratio (10-20) Glucose (70-99) mg/dl POC Glucose 132 H (70-99) POC Glucose (other) (70-99) mg/dl Estimat Average Glucose mg/dl Hemoglobin A1c (4.5-5.6) % Calcium (8.5-10.1) mg/dl POC Ioniz Calcium [place] (1.12-1.32) mmol/l Phosphorus (2.5-4.9) mg/dl Magnesium (1.8-2.4) mg/dl Total Bilirubin (0.2-1) mg/dl AST (15-37) U/L ALT (12-78) U/L Alkaline Phosphatase (45-117) U/L POC Troponin I (0-0.045) ng/ml Troponin I (0-0.045) ng/ml Total Protein (6.4-8.2) gm/dl Albumin (3.4-5.0) gm/dl Globulin (2.5-4.0) gm/dl Albumin/Globulin Ratio (0.9-2) Triglycerides (0-150) mg/dl Cholesterol (0-200) mg/dl LDL Cholesterol, Calc mg/dl VLDL Cholesterol, Calc mg/dl HDL Cholesterol mg/dl Cholesterol/HDL Ratio Lipase (73-393) U/L Hepatitis C Ab Screen (Neg) Imaging Data Radiologist's Impression: Radiology results as stated below per my review and the radiologist's interpretation: XR chest 1V portable CLINICAL HISTORY: Atypical chest pain COMPARISON STUDY: No previous studies for comparison. FINDINGS: The heart is borderline enlarged. There is no failure. There is no focal pulmonary consolidation. There are no pleural effusions. Apparent slight interstitial thickening, likely relates to technical factors given the patient's body habitus.[ IMPRESSION: No active disease in the chest. Electronically signed by: Noe Lanier M.D. 03/13/2019 10:59 AM ECG Data Attestation: I personally reviewed and interpreted this ECG as follows: Rate (beats per minute): 61 Rhythm: normal sinus Findings: + other (normal intervals, questionable hyper acute t wave in V2. trace elevaton in AVL but not in 1.), + ST depression (in 3 and avF), + ST elevation (in V1) and + left axis deviation Comparison ECG Date: no prior available Blood Pressure Blood Pressure Findings: Normal blood pressure Blood Pressure Disposition: further management by hospitalist ANABELEL Sun The patient is a 68 white male w/ PMHx CAD who presents to the ED w/ CC of constant chest pain beginning 2 hours ago. Differential diagnosis: Etiologies such as shingles, musculoskeletal pain, pericarditis, myocarditis, cardiac ischemia, pericardial tamponade, pneumonia, pneumothorax, pleural effusion, hemothorax, pleurisy, aortic pathology, pulmonary embolism, intra- abdominal process, as well as others were considered. Patient was seen and evaluated the bedside. I did receive a medical command call given concerning for chest pains and a prior history of CAD. The patient was given IV fluids morphine and aspirin prior to arrival. Upon presentation the patient was complaining diaphoresis chest pain did radiate to his left neck. Patient states that he initially had exertional chest pressure. Patient states his been compliant with his medications. Patient is a smokeless tobacco user. Patient's prehospital and in hospital EKG may be show any evolving NE anteriorly. Patient does have some elevation in V1 and potentially hyperacute T waves in V2. Patient does have depressions in the inferior leads. The patient was given additional pain medication heparin was initiated. I did speak with the on-call interventional list who agreed that the patient should be taken to the [facility] urgently. I did return the patient's pain had improved. The patient was loaded with Brilinta. I did speak the on-call hospitalist who agreed to further evaluate treat the patient. Patient was taken to the catheterization lab. Impression & Plan ACS (acute coronary syndrome), Encounter for tobacco use cessation counseling Critical Care Time I have personally spent 45 minutes of critical care time in the direct management of this patient. This includes bedside care, interpretation of diagnostic studies, and testing, discussion with consultants, patient, and family members, and other required patient management activities. This 45 minutes is in excess of all separately billable procedures. Critical Care Time: Yes Total Critical Care Time: 45 Discharge Plan Visit Data *Final* Discharge Date/Time: 03/13/19 11:55 Chief Complaint: Chest Pain Stated Complaint: chest pain ED Provider: Sean Schreiber Discharge Problem: ACS (acute coronary syndrome), Encounter for tobacco use cessation counseling Patient Disposition: Admitted As Inpatient Discharge Instructions Interventions: ED Discharge Assessment Last Done: 03/13/19 11:52 The scribe's documentation has been prepared under my direction and personally reviewed by me in its entirety. I confirm that the note above accurately reflects all work, treatment, procedures, and medical decision making performed by me.
[2019-03-13] MEDS ORDERED: ALUMINUM/MAGNESIUM SUSP 18 ML, LIDOCAINE HCL VISCOUS 2% 6 ML, BARCODE IDENTIFIER 1 EA PO ONE (18:30)
[2019-03-13] MEDS: METOPROLOL TARTRATE 25 MG TAB PO SCH (20:52)
[2019-03-13] MEDS: MoRPHine SULFATE 2 MG/ML CARP IV PRN (20:53)
[2019-03-13] MEDS: TICAGRELOR 90 MG TAB PO SCH (22:38)
[2019-03-14] MEDS: MoRPHine SULFATE 2 MG/ML CARP IV PRN (01:22)
[2019-03-14] MEDS: ONDANSETRON INJ 2 MG/ML 2 ML VIAL IV PRN ×2 (03:25→12:30)
[2019-03-14 05:56] LABS: Basophils # (auto) 0.01 K/uL (0-0.2); Basophils % (auto) 0.1 %; Eosinophils # (auto) 0.02 K/uL (0-0.5); Eosinophils % (auto) 0.2 %; Hematocrit (blood only) 39.5 % (42-52); Hemoglobin 13.5 g/dL (14.0-18.0); Immature Granulocytes # (auto) 0.03 K/uL (0.00-0.02); Immature Granulocytes % (auto) 0.2 %; Lymphocytes # (auto) 1.81 K/uL (1.2-3.4); Lymphocytes % (auto) 14.3 %; Mean Corpuscular Hgb Conc 34.2 g/dL (32-36); Mean Platelet Volume 9.6 fL (7.4-10.4); Monocytes # (auto) 1.05 K/uL (0.11-0.59); Monocytes % (auto) 8.3 %; Neutrophils # (auto) 9.71 K/uL (1.4-6.5); Neutrophils % (auto) 76.9 %; Platelet Count 265 K/uL (130-400); RDW Coefficient of Variation 13.6 % (11.5-14.5); RDW Standard Deviation 44.9 fL (36.4-46.3); Red Blood Count 4.34 M/uL (4.7-6.1); White Blood Count 12.63 K/uL (4.8-10.8)
[2019-03-14 06:34] LABS: Chol HDL Ratio 3; Cholesterol 113 mg/dl (0-200); HDL Cholesterol 39 mg/dl; LDL Cholesterol Calculated 56 mg/dl; Triglycerides 91 mg/dl (0-150); VLDL Cholesterol 18 mg/dl
[2019-03-14 07:19] LABS: Estimated Average Glucose 148 mg/dl; Hemoglobin A1C 6.8 % (4.5-5.6)
--- NOTE | 2019-03-14 07:57 | Hospitalist Progress Note ---
Date of Service March 14, 2019 Assessment & Plan (1) Fever: Had a fever spike of 38 C. No new symptoms Will monitor closely. If more spikes, will consider blood cx and further work up. For now monitor fever curve, repeat CBC, BMP in AM (2) ACS (acute coronary syndrome): ANTERIOR STEMI S/P Cardiac cath on 03/13/19- PCI -proximal LAD with single drug-eluting stent overlapping proximal aspect of prior stent -Recommends dual antiplatelet therapy indefinitely most likely with very late stent thrombosis -Continue Aspirin 81 mg, Brilinta 90 mg twice daily (started this admission) , Atorvastatin 80 mg q HS (Increased dose from 40 mg at home), lisinopril 2.5 mg (started this admission- titrate as BP allows), metoprolol tartrate 25 mg twice daily (home once a day), nitroglycerin as needed -Work up- Troponin peaked to 193; EKG-ST elevation in anterior leads, ST depression in inferior leads, chest x-rayno acute changes -Mx per primary team- cardiology (3) CAD (coronary artery disease): Pt with history LUZ to LAD in 2017. Follows with Dr Smith cardiology in [place]. Mx as above (4) Diabetes mellitus, type II: -A1c - 6.8; Well controlled while in hospital -Hold metformin while in hospital -Novolog sliding scale per protocol (5) Renal insufficiency: BUN: 22, Cr: 1.28, GFR: 56 Unsure of pt's baseline -monitor renal functions- follow up BMP today -avoid nephrotoxic agents when possible (6) Tobacco use: Tobacco cessation encouraged Pt denies nicotine patch DVT Prophylaxis S/P Brilinta loading, IV heparin Full Code as per discussion with pt DISPOSITION Medical mx in progress Follows with Dr Adis Perez in [place] for routine care Pt will be followed by Dr Concepcion starting 03/14/19. Thank you for this consultation. We will follow the patient with you during their hospital stay. You can reach a member of the [facility] Hospitalist Team 28/05 via pager @ [phone]. Subjective Patient c/o nausea and some chest pain which improved with GI cocktail. No vomiting, abd pain. Had a fever spike of 38 C. Denies any new complaints of cough, SOB, diarrhea. Physical Exam Physical Exam: GENERAL- AAOX3, No acute distress LUNGS- Air entry bilaterally equal. No rales, rhonchi, crackles, wheezes heard. HEART- Regular rate and rhythm. No murmurs ABDOMEN- Soft, non tender, non distended, Bowel sounds heard. EXTREMITIES- S/P Right radial cath. Good peripheral pulses, no edema NEUROMUSCULAR- AAOX3, Grossly no focal deficits Results & Data Vital Signs (Past 12 Hours) Vital Signs Temp Pulse Pulse Resp BP Pulse Ox 03/14/19 04:00 37.4 C 65 16 93 03/13/19 23:35 37.3 C 65 16 122/71 95
[2019-03-14] MEDS: LISINOPRIL 2.5 MG TAB PO SCH (08:13)
[2019-03-14] MEDS: TICAGRELOR 90 MG TAB PO SCH ×2 (08:13→20:44)
[2019-03-14] MEDS: METOPROLOL TARTRATE 25 MG TAB PO SCH ×2 (08:13→20:44)
[2019-03-14] MEDS: ATORVASTATIN 40 MG TAB PO SCH (08:14)
[2019-03-14] MEDS: ASPIRIN 81 MG ECTAB PO SCH (08:14)
[2019-03-14] MEDS: INSULIN ASPART 100 UNITS/ML 3 ML PEN SC SCH ×3 (08:14→21:28)
--- NOTE | 2019-03-14 09:37 | Cardiology Progress Note ---
Date of Service March 14, 2019 Assessment & Plan (1) ACS (acute coronary syndrome): 2. Very late proximal LAD stent thrombosis 3. Ischemic cardiomyopathy 4. Type 2 DM Chest pain largely resolved. Troponin peaked. Hemodynamically and electrically stable. Only mild LV dysfunction on post procedure echo yesterday. No apparent access site complications. -- Continue DAPT with Ticagrelor and ASA -- Continue current FAREED/Beta-justa, repeat BMP pending -- Continue high-intensity statin -- Monitor on telemetry, up walking halls today. If stable home tomorrow. Subjective Chest pain largely resolved. States most improvement with addition of GI cocktail. No other new complaints. Tele reviewed -- no events. Review of Systems Review of Systems: All systems reviewed & are unremarkable except as noted in HPI & below Physical Exam Eyes: + anicteric sclerae Respiratory: normal respiratory effort, lungs clear to auscultation Cardiovascular: Rate/Rhythm: regular rate Heart Sounds: no murmur Extremities: no edema Right radial artery access site with minimal ecchymosis, no hematoma. Distal pulse and sensation intact. Gastrointestinal (Abdomen): normal bowel sounds, soft, nontender, no hepatosplenomegaly Skin: no rashes, warm and dry Psychiatric: A+Ox3, euthymic affect Results & Data Vital Signs (Past 12 Hours) Vital Signs Temp Pulse Pulse Resp BP Pulse Ox 03/14/19 04:00 37.4 C 65 16 93 03/13/19 23:35 37.3 C 65 16 122/71 95
[2019-03-14] MEDS: SODIUM CHLORIDE 0.9% 1000ML 1,000 ML IV SCH (18:45)
[2019-03-15 05:52] LABS: Hematocrit (blood only) 35.9 % (42-52); Hemoglobin 12.8 g/dL (14.0-18.0); Mean Corpuscular Hgb Conc 35.7 g/dL (32-36); Mean Corpuscular Volume 90.4 fL (80-100); Mean Platelet Volume 9.4 fL (7.4-10.4); Platelet Count 251 K/uL (130-400); RDW Coefficient of Variation 13.4 % (11.5-14.5); RDW Standard Deviation 44.6 fL (36.4-46.3); Red Blood Count 3.97 M/uL (4.7-6.1)
[2019-03-15 06:20] LABS: BUN Creatinine Ratio 17.3 (10-20); Calcium 8.9 mg/dl (8.5-10.1); Creatinine Clr Calc Pharmacy 77.8 ml/min; Est GFR (African American) 76.4; Potassium 4.2 mmol/L (3.5-5.1)
[2019-03-15] MEDS: INSULIN ASPART 100 UNITS/ML 3 ML PEN SC SCH (08:43)
[2019-03-15] MEDS: TICAGRELOR 90 MG TAB PO SCH (08:43)
[2019-03-15] MEDS: ATORVASTATIN 40 MG TAB PO SCH (08:44)
[2019-03-15] MEDS: LISINOPRIL 2.5 MG TAB PO SCH (08:44)
[2019-03-15] MEDS: ASPIRIN 81 MG ECTAB PO SCH (08:44)
[2019-03-15] MEDS: METOPROLOL TARTRATE 25 MG TAB PO SCH (08:44)
--- NOTE | 2019-03-15 10:00 | Hospitalist Progress Note ---
Date of Service March 15, 2019 Assessment & Plan (1) ACS (acute coronary syndrome): Previous non-STEMI, PCI LAD with LUZ. Presented with chest pain. EKG demonstrated anterior STEMI. Cath demonstrated LAD stenosis. PCI LAD with drug-eluting stent performed with good results. Ambulating without anginal symptoms. Ongoing management per Cardiology. (2) CAD (coronary artery disease): Previous non-STEMI, PCI LAD with LUZ. Acute anterior STEMI as discussed above. Receiving aspirin, ticagrelor, metoprolol tartrate, lisinopril, atorvastatin. Ongoing management per Cardiology. (3) Ischemic cardiomyopathy: Echo 03/13 demonstrated hypokinesis of apex and distal anterolateral segments with LVEF of 45-50%. Started on lisinopril. Ongoing management per Cardiology. (4) Diabetes mellitus, type II: Usually well-controlled on metformin. Hgb A1C = 6.8. Metformin held during hospital stay. NovoLog coverage ordered. FBS this morning 151. Resume metformin upon discharge. (5) Fever: Tmax 38.0 yesterday at 12:29. No fever since. No pulmonary, GI, symptoms. No need for further evaluation at this time. (6) Discharge planning issues: Anticipated discharge to home. Medical follow-up with Dr. Perez. Cardiology follow-up with Dr. Smith. (7) Encounter for consultation: Thank you for this consultation. We will follow the patient with you during their hospital stay. My cell # is [phone]. You can reach a member of the [facility] Medicine Team 28/05 via pager @ [phone]. Subjective Recheck for STEMI and other problems. Patient seen in their room around 0930. Doing well. No chest pain. No cough or SOB. Ambulating. Blood sugars well-controlled. Review of Systems: Constitutional- recorded fever as high as 38.0 yesterday at 12:29; afebrile since Cardiac- as noted above Pulmonary- no cough or SOB. GI- no nausea, vomiting, diarrhea, melena, hematochezia. - no urinary symptoms. Otherwise, as noted above. Physical Exam Constitutional: no acute distress Respiratory: no respiratory distress Auscultation: lungs clear to auscultation bilaterally Cardiovascular: Rate/Rhythm: regular rate and regular rhythm Heart Sounds: no gallop, no murmur and no cardiac rub Vessels: no JVD Extremities: no calf tenderness and no edema Gastrointestinal (Abdomen): normal bowel sounds, soft, nontender, no hepatosplenomegaly Skin: no rashes, warm and dry Psychiatric: Orientation: alert and oriented x 3 Results & Data Vital Signs (Past 12 Hours) Vital Signs Temp Pulse Pulse Resp BP Pulse Ox 03/15/19 06:40 36.8 C 60 16 111/57 L 93 03/15/19 03:00 37.3 C 67 16 90/55 L 94 03/15/19 00:00 58 L 03/14/19 23:25 36.4 C L 60 16 92/60 L 96 Laboratory Results Laboratory Results - last 24 hr 03/14/19 03/14/19 03/14/19 11:20 16:21 20:15 WBC RBC Hgb Hct MCV MCH MCHC RDW Std Deviation RDW Coeff of Hi[place]ot Plt Count MPV Sodium Potassium Chloride Carbon Dioxide Anion Gap BUN Creatinine Est Cr Clr Drug Dosing Est GFR ( Amer) Est GFR (Non-Af Amer) BUN/Creatinine Ratio Glucose POC Glucose 132 H 120 H 130 H Calcium 03/15/19 03/15/19 03/15/19 05:28 05:28 07:22 WBC 9.70 RBC 3.97 L Hgb 12.8 L Hct 35.9 L MCV 90.4 MCH 32.2 MCHC 35.7 RDW Std Deviation 44.6 RDW Coeff of Hiwot 13.4 Plt Count 251 MPV 9.4 Sodium 140 Potassium 4.2 Chloride 105 Carbon Dioxide 30 Anion Gap 5.0 BUN 20 H Creatinine 1.13 Est Cr Clr Drug Dosing 77.8 Est GFR ( Amer) 76.4 Est GFR (Non-Af Amer) 66.0 BUN/Creatinine Ratio 17.3 Glucose 137 H POC Glucose 151 H Calcium 8.9
--- NOTE | 2019-03-15 16:43 | Discharge Summary ---
Date of Service March 15, 2019 Admission HPI Per Admitting Provider Mr. Valencia is a 68-year-old man with a history of type 2 diabetes, coronary artery disease post prior NSTEMI with PCI to LAD in 2017 who was readmitted with acute onset chest pain and EKG concerning for acute anterior TN. Prior cardiac care in [place] with Dr. Smith. Per patient and family at time of CAD diagnosis had severe LV dysfunction requiring patient to wear LifeVest. LV dysfunction reportedly since resolved. DAPT with Brilinta discontinued at 1 year out from stent has been on aspirin alone. Specialty Data Cardiology Cardiac catheterization/PCI 03/13/2019: Summary: 1. Anterior STEMI/Occluded proximal LAD just proximal to prior stent 2. Minimal non-culprit vessel coronary artery disease 3. Borderline intracardiac filling pressure 4. Successful PCI of proximal LAD with single drug-eluting stent (3.0 x 15 mm [place] postdilated with 3.25 NC) overlapping proximal aspect of prior stent Echo 03/13/2019: LVEF 45 to 50%, severe hypokinesis to akinesis of apex and distal anterior lateral segment, mild MR Discharge Data Consultations 03/13/19 11:25 ED Decision to Admit Stat 03/13/19 12:56 Consult Cardiac Rehabilitation Routine 03/15/19 10:00 Consult Health Information Management Routine Procedures Performed Operation Date: 03/13/19 11:45 Actual Procedures p Aspiration/PCI w/LUZ for Stemi - Edwin Vincent MD s Cineradiography w/Routine Exam - Edwin Vincent MD s IVUS Coronary Single Vessel - Edwin Vincent MD s Cath, Left with Cors and Vent - Edwin Vincent MD Hospital Course (1) ACS (acute coronary syndrome): In the setting of acute anterior TN was taken emergently to cardiac catheterization which revealed acute 100% proximal LAD occlusion just proximal to previous stent. Prior stent further postdilated and a second stent placed to proximal LAD overlapping proximal aspect of initial stent. Post procedure patient chest pain-free. He remained hemodynamically and electrically stable. His troponin peaked at 193. Post procedure echocardiogram showed only mild LV dysfunction with apical wall motion abnormality. He was restarted on dual anti-platelet therapy with aspirin, Brilinta and will continue for at least one year and consider indefinite therapy. Continued on prior Toprol-XL with addition of lisinopril. Atorvastatin increased to 80 mg daily. He was discharged home on hospital day 3. He has plans to follow-up with his prior excel analyst Dr. Smith in 2 weeks. Discharge Instructions Home Medications meloxicam 15 mg PO DAILY 03/13/19 [History Confirmed 03/13/19] metformin 1,000 mg PO BID 03/13/19 [History Confirmed 03/13/19] metoprolol succinate 25 mg PO DAILY 03/13/19 [History Confirmed 03/13/19] aspirin [Ecotrin Low Strength] 81 mg PO QAM 30 Days #30 tab 03/15/19 [Rx] atorvastatin 80 mg PO QAM 30 Days #60 tab 03/15/19 [Rx] lisinopril 2.5 mg PO QAM 30 Days #30 tab 03/15/19 [Rx] nitroglycerin [Nitrostat] 0.4 mg SUBLINGUAL PRN PRN 30 Days #30 tab 03/15/19 [Rx] ticagrelor [Brilinta] 90 mg PO BID 30 Days #60 tab 03/15/19 [Rx]
== END 2019-03-15 12:30 | disposition home or self-care (01) | DRG 247 ==
LOC: ED 10:41 → 2E 11:55 → CC 11:55 → 2E 12:50